=== PATIENT | male | born 1960 | race Caucasian/White ===

== ENCOUNTER 2023-05-31 08:34 | Outpatient (CLI) | payer BC, SELFPAY | END 2023-05-31 08:35 | disposition home or self-care (01) | LOC: NFLDREF 06-02 06:33 | PROVIDERS: PCP Emergency Medicine; Referring Provider Emergency Medicine; Visit Provider Emergency Medicine | DX: Z00.00 Encounter for general adult medical examination without abnormal findings (principal); Z12.5 Encounter for screening for malignant neoplasm of prostate; Z13.6 Encounter for screening for cardiovascular disorders | CPT/HCPCS: 80048; 80061; 84153 ==

== ENCOUNTER 2023-07-10 12:59 | Outpatient (CLI) | payer BC, SELFPAY | END 2023-07-10 13:00 | disposition home or self-care (01) | PROVIDERS: PCP Emergency Medicine; Visit Provider Emergency Medicine | DX: Z00.00 Encounter for general adult medical examination without abnormal findings (principal); R10.9 Unspecified abdominal pain; K59.00 Constipation, unspecified | CPT/HCPCS: 83516; 84443 ==

== ENCOUNTER 2023-09-04 10:32 | Outpatient (CLI) | payer BC, SELFPAY | END 2023-09-04 10:33 | disposition home or self-care (01) | LOC: LKVREF 10:33 | PROVIDERS: PCP Emergency Medicine; Visit Provider Emergency Medicine | DX: Z01.818 Encounter for other preprocedural examination (principal) | CPT/HCPCS: 80048 ==

== ENCOUNTER 2023-10-31 09:35 | Outpatient (CLI) | payer BC, SELFPAY | END 2023-10-31 09:36 | disposition home or self-care (01) | PROVIDERS: PCP Emergency Medicine; Visit Provider Emergency Medicine | DX: Z01.818 Encounter for other preprocedural examination (principal); D69.6 Thrombocytopenia, unspecified | CPT/HCPCS: 80048 ==

== ENCOUNTER 2024-04-01 09:46 | Outpatient (CLI) | payer BC, SELFPAY | END 2024-04-01 09:47 | disposition home or self-care (01) | LOC: LKVREF 09:48 | PROVIDERS: PCP Emergency Medicine; Visit Provider Family Medicine | DX: R10.12 Left upper quadrant pain (principal); Z13.228 Encounter for screening for other metabolic disorders | CPT/HCPCS: 80048 ==

== ENCOUNTER 2024-04-28 06:05 | Day surgery (SDC) | payer BC, SELFPAY ==
[2024-04-28] VITALS (11 sets, daily range): BP systolic 112–126; BP diastolic 64–82; PULSE 57–80; RESP 15–19; TEMP 36.3–36.6; O2SAT 94–98; BMI 27.1
--- OUTSIDE RECORDS SUMMARY | 2024-04-28 06:08 | XMS_ITS | Continuity of Care Document ---
Author Organization [facility] Address [address] [address] [place] [address] Phone Care Team Providers Care Hopper Attendant Name Role Phone No Information Unavailable Unavailable Allergies, Adverse Reactions, Alerts Substance Reaction Status Criticality No Known Allergies Active No Inform ation Medications Medication Instructions Dosage Effective Dates (start - stop) Status Comments MiralaxBisacodylMagCit Colon Prep Use as directed - Active Procedures Procedure Date Offic/outpt E&m Estab Mod-hi 2 23 Colonoscopy Flex; W/bx 1/mx Level Iv-surg Path Gross/micro 21 cancelled appt Colonoscopy Flex; W/remov Les- 15 Colonoscopy Flex; W/bx 1/mx Level Iv-surg Path Gross/micro 15 Advance Directives Directive Yes / No Effective Date File Name No Information Encounters Encounter Description Practice Location Reason(s) For Visit Diagnoses Date Provider Providers Copied on Encounter [facility] [address] [address], [place], [place], [id number], [place] tel:[phone] No Information No Information [facility], [address] [address], [place], [place], [id number], [place] tel:[phone] [facility] Irritable bowel syndrome with constipation 3 Cassy SAVAGE Jin. [address] [facility], [facility] [address], [place], [place], [id number], [place]. tel:[phone] Offic/outpt E&m Estab Mod-hi 2 [facility], [address] [address], [place], [place], [id number], [place] tel:[phone] [facility] GI Symptoms or Concerns (chief complaint) Irritable bowel syndrome with constipationRe ducible umbilical hernia Apr-0 3 Cassy Abdi. [address] [facility], [facility] [address], [place], [id number], [place]. tel:[phone] Referring Provider: Mei Santana MD, [address] [place] [address], [address]. tel:[phone] [facility], [address] [address], [place], [id number], [place] tel:[phone] [facility] No Information 3 Conrad Montes. [address] [facility], [address], [id number], [place]. tel:[phone] [facility], [address] [address], [place], [id number], [place] tel:[phone] [facility] Personal history of colonic polypsColorect al polypsEncounte r for screening for malignant neoplasm of colonBenign neoplasm of ascending colon 1 Hola Wiseman. [address] [facility], [address], [id number], [place]. tel:[phone] Referring Provider: Referral Self, USE FOR SELF REFERRALS. [facility], [address] [address], [place], [place], [address], [place] tel:[phone] [facility] No Information 0 Pranav Arora. [address] [facility], [facility] [address], [place], [id number], [place]. tel:[phone] [facility], [address] [address], [place], [address], [place] tel:[phone] [facility] No Information 8 Monty Chavarria. [address], [id number], [place]. [phone] Referring Provider: Referral Self, USE FOR SELF REFERRALS. [facility], [address] [address], [place], [id number], [place] tel:[phone] [facility] No Information 8 Link MD Mercado. [address] [place] [address], [id number], [place]. tel:[phone] [facility], [address] [address], [place], [address], [place] tel:[phone] [facility] Personal history of colonic polypsPersonal history of colonic polyps 5 Hola Wiseman. [address] [place] [address], [id number], [place]. tel:[phone] [facility], [address] [address], [facility] [place], [address], [place] tel:[phone] [facility] Colon cancer screeningColon ic polypsColon Cancer ScreeningBenig n Neoplasm Colon 5 Hola Wiseman. [address] [place] [address], [id number], [place]. tel:[phone] [facility], [address] [address], [place], [address], [place] tel:[phone] [facility] External Referral 5 No Information Family History Family Member Type Diagnosis Age At Onset Brother Problem (finding) Son Problem (finding) Alive and well Daughter Problem (finding) Alive and well Mother Problem (finding) Alive and well Father Problem (finding) Alive and well Immunizations Vaccine Date Status Comments Afluria Qd administered Note: [facility] bi-directional interface ; Source: Other Registry SARS-COV-2 (COVID-19) vaccin e, mRNA, spike protein, LNP, bivalent booster, preservative free, 30 mcg/0.3 mL dose, alissa-sucrose formulation administered Note: [facility] bi-d irectional interface ; Source: Other Registry Afluria Qd administered Note: [facility] bi-directional interface ; Source: Other Registry SARS-COV-2 (COVID-19) vaccin e, mRNA, spike protein, LNP, preservative free, 30 mcg/0.3mL dose administered Note: [facility] bi-direct ional interface ; Source: Other Registry SARS-COV-2 (COVID-19) vaccin e, mRNA, spike protein, LNP, preservative free, 100 mcg/0.5mL dose or 50 mcg/0.25mL dose administered Note: [facility] bi -directional interface ; Source: Other Registry SARS-COV-2 (COVID-19) vaccin e, mRNA, spike protein, LNP, preservative free, 100 mcg/0.5mL dose or 50 mcg/0.25mL dose administered Note: [facility] bi -directional interface ; Source: Other Registry Influenza administered Note: [facility] bi-d irectional interface ; Source: Other Registry Influenza, seasonal, injectable administe red Note: [facility] bi- directional interface ; Source: Other Registry Influenza, seasonal, injectable administe red Note: [facility] bi- directional interface ; Source: Other Registry tetanus toxoid, reduced diphtheria toxoid, and acellular pertussis vaccine, adsorbed administered Note: [facility] b i-directional interface ; Source: Other Registry Influenza, seasonal, injectable administe red Note: [facility] bi- directional interface ; Source: Other Registry Influenza, seasonal, injectable administe red Note: [facility] bi- directional interface ; Source: Other Registry tetanus and diphtheria toxoi ds, adsorbed, preservative free, for adult use (2 Lf of tetanus toxoid and 2 Lf of diphtheria toxoid) administered Note: [facility] bi-direct ional interface ; Source: Other Registry Payers Payer name Insurance type Covered green party ID Authoriza tion(s) No Information Social History Type Description Quantity Date Captured Comments Sex Male Smoking Status No Information Chief Complaint And Reason For Visit No Information Reason For Referral Reason For Referral No Information History Of Present Illness Encounter Date Complaint History Of Sherif rosas Illness GI Symptoms or Concerns Bill is a 62-year-old male patient who was referred for evaluation of abdominal discomfort. Outside records were reviewed, and noted unremarkable CBC, lipase, and LFTs. He did have abdominal CT scan on February 23, 2022, which showed an above average stool burden, otherwise completely unremarkable. Reportedly, abdominal x-ray showed large amount of stool. He did have a colonoscopy with [facility] in April 2021, that showed small polyps, otherwise normal.The patient reports that symptoms became more bothersome over the past year, including abdominal pain under the periumbilical area and just below the umbilicus along with bulge in his umbilicus. He also reports persistent left upper quadrant abdominal discomfort, that worsens with physical activity, movements sometimes, and sometimes during sexual intercourse. He reports that this can improve with stretching that area, he also reports that bowel movements helped a little bit with this discomfort. He reports that his bowel movements a Functional Status Date Functional Assessmen t No Information Medications Administered Medication Instructions Dosage Effective Dates (start - stop) Status Comments No Drug Therapy Prescribed Instructions Date Instruction Additional Infor judy 1. We suggested chec dahlia his calcium level and thyroid, however, he prefers to have this done at his PCP with the upcoming physical.2. Suggested to continue with increased water intake, 60 to 90 ounces of water a day. Add Benefiber or Citrucel fiber supplement as described below.3. May use MiraLax on a daily basis. As a next step, linaclotide might be an option given his abdominal discomfort.4. Advise PCP to refer to Surgery for treatment of umbilical hernia.5. Advised to have the surgeon review his images to see if there is any internal abnormality leading to discomfort, which I believe is less likely, and I believe that this is more related to a referred pain. I believe that physical therapy can be an option for helping his back and his abdominal discomfort, however, the patient does not believe that this is the problem. Advised to discuss with his PCP if referral to physical therapy is reasonable.6. Follow up as needed. We will refer for colonoscopy given his altered bowel habits to rule out any obstructive etiology.I spent a total of 55 minutes in reviewing outside records, [id number] clinical encounter, care coordination, and dictation. Related to Irritable bowel syndrome with constipation Colon Polyps Related to Color ectal polyps Colon Cancer Prevention Related to Colonic polyps Colon Polyps Related to Colon ic polyps Assessments Type Assessment Date No Information Patient Care Teams Name Effective Dates (start - stop) Status Members No Information
--- OUTSIDE RECORDS SUMMARY | 2024-04-28 06:08 | XMS_ITS | Clinical Summary ---
Author Organization [facility] Address [place], [place] [address] Care Team Providers Care Senior Ruby Developer Name Role Phone Pcp, No Primary Care Provider Unavailabl e Allergies No known active allergies Medications Medication Sig Dispensed Refills Start Date End Date Status multivitamin (MVI) tablet Take 1 tablet by mouth once daily. 0 05/30/2010 Active cholecalciferol (VITAMIN D-3) 2,000 unit capsule Take 1 capsule by mouth once daily. 0 08/05/2017 Active Active Problems Problem Noted Date Diagnosed Date Vitamin D deficiency 08/05/2017 Family history of cardiac arrest, younger brothe r, . 01/13/2016 Colon polyp 12/21/2015 Routine health maintenance 12/21/2015 Overview: Colonoscopy 04/08, recheck 5 yrs Screening for diabetes mellitus 09/05/2011 Overweight (BMI 25.0-29.9) 09/05/2011 Immunizations Name Administration Dates Next Due Influenza, IIV3 (Age >=3 years) 09/12/2012,10/08 Td (Age >=7 Years) 03/02/2005 Tdap 11/12/2012 Family History Medical History Relation Name Comments Heart Disease Brother bad CAD, Psychiatric illness Brother depressi on, alcohol - at 42 of overdose No Known Problems Daughter Good Health Father Cancer Maternal Grandfather Unknown source of cancer Good Health Mother Cancer Paternal Grandfather No Known Problems Son Relation Name Status Comments Brother Daughter Alive Father Alive Maternal Grandfather Cancer, possibly due to oil industry. Maternal Grandmother passed at age 100 Mother Alive Paternal Grandfather [place]. Paternal Grandmother Son Alive Social History Tobacco Use Types Packs/Day Years Used Date Smoking Tobacco: Never Smokeless Tobacco: Never Alcohol Use Standard Drinks/Week Comments Yes 1.7 (1 standard drink = 0.6 oz p ure alcohol) Sex and Gender Information Value Date Recorded Sex Assigned at Not on file Gender Identity Not on file Sexual Orientation Not on file Obstetrics History Last Filed Vital Signs Vital Sign Reading Time Taken Comments Blood Pressure 122/74 08/05/2017 8:43 AM CDT Pulse 64 08/05/2017 8:43 AM CDT Temperature 36.9 ??C (98.4 ??F) 09/26/2015 9:26 AM CS T Respiratory Rate - - Oxygen Saturation - - Inhaled Oxygen Concentration - - Weight 97.1 kg (214 lb) 08/05/2017 8:43 AM CDT Height 182.9 cm (6') 08/05/2017 8:43 AM CDT Body Mass Index 29.02 08/05/2017 8:43 AM CDT Plan of Treatment Health Maintenance Due Date Last Done Comments HIV for age 15-65 1977 Zoster (shingles) series for age 50+ (1 of 2) 2012 BMI (ht and wt on same day) for age 18+ 08/05/2018 08/05/2017, 09/19/2016, 12/22/2015 Depression screening for age 12+ 08/05/2018 08/05/2017, 12/22/2015 Lipids for age 45-75 08/05/2022 08/05/2017, 12/22/2015, 06/30/2014, Additional history exists Tetanus booster 11/12/2022 11/12/2012, 03/02/2005 COVID-19 vaccine series ( season) 2023 Influenza for age 50-64 07/26/2024 09/10/20 16 ([facility]), 09/12/2012, 10/08/2007 Colonoscopy through age 75 04/13/2025 04/13/2015 Tdap Completed 11/12/2012 Hepatitis C screening for age 18-79 Completed 06/30/2014 Pneumococcal series for age 6-64 Aged Out No longer eligible based on patient's age to complete this topic Procedures Procedure Name Priority Date/Time Associated Diagnosis Comments LIPID PANEL W REFLEX MEASURED LDL Routine 08/05/2017 9:27 AM CDT Screening for cholesterol level SCAN-COLONOSCOPY 04/13/2015 8:00 AM CDT ANTI HCV Routine 06/30/2014 9:12 AM CDT Need for hepatitis C screening test from Last 3 Months or Most Recently Relevant to Health Maintenance Results * LIPID PANEL W REFLEX MEASURED LDL (08/05/2017 9:27 AM CDT) CHOLESTEROL,TOTAL 162 100 - 199 mg/dL 08/05/2017 2:24 PM CDT [facility] TRIGLYCERIDES 77 <150 mg/dL 08/05/2017 2:24 PM CDT [facility] HDL CHOLESTEROL 47 >40 mg/dL 7 2:24 PM CDT [facility] NON-HDL CHOLESTEROL 115 <145 mg/dl 08/05/2017 2:24 PM CDT [facility] CHOL/HDL RATIO 3.45 <4.50 08/05/2017 2:24 PM CDT [facility] LDL CHOLESTEROL 100 <=130 mg/dL 08/05/2017 2:24 PM CDT [facility] PATIENT STATUS FASTING 08/05/2017 2:24 PM CDT [facility] Blood BLOOD SPECIMEN / Unknown Venipuncture / Unknown 08/05/2017 9:27 AM CDT 08/05/2017 9:27 AM CDT Paul FARIAS [facility] [address] [place] [address], * SCAN-COLONOSCOPY (04/13/2015 8:00 AM CDT) Narrative Transcriptions Bowen Simental MD - 04/13/2015 7:23 AM CDT [facility] [address] [facility], [address], [place] [address] Patient Name: Crow Damico Gender: Male Exam Date: 04/13/2015 Visit Number: [id number] Age: 54 Years Date of : 1960 Attending MD: Bowen Simental MD Medical Record#: [id number] ----- Procedure: Colonoscopy Indications: Colorectal cancer screening Referring MD: Clarence Patton MD Primary MD: Clarence Patton MD Medications: Intra Procedure Medications: Fentanyl given 0.1 mg by IV Midazolam given 2 mg by IV Complications: Procedure: An examination of the heart and lungs was performed and found to be withinacceptable limits. The patient was therefore deemed a reasonablecandidate for endoscopy and {cons_sedation: Unexpected Value} sedation. The risks and benefits of the procedure were explained to the patient.After obtaining informed consent, the patient was sedated under mydirection and I passed the scope without difficulty via the rectum to the ileum. The appendiceal orificeand ic valve were identified. The scope was retroflexed during theexamination The quality of the prep was good (Miralax/Gatorade/2 tabletsBisacodyl/Magnesium Citrate). This was a complete examination throughout the entire colon. Findings: Polyp location: ascending colon. Quantity: 1. Size: 3 mm. Polyp shape:sessile. Maneuver: polypectomy was performed with a cold biopsy forceps. Removal: complete. Retrieval: complete. Bleeding: none. Polyp location: descending colon. Quantity: 1. Size: 5 mm. Polyp shape:pedunculated. Maneuver: polypectomy was performed with a cold snare . Removal: complete. Retrieval: complete. Bleeding: none. Polyp location: sigmoid. Quantity: 1. Size: 3 mm. Polyp shape:sessile. Maneuver: polypectomy was performed with a cold biopsy forceps . Removal: complete. Retrieval: complete. Bleeding: none. Remainder of the exam is normal. Impression: Colon cancer screening Colonic polyps Pathology Results: A: COLON, ASCENDING, POLYP: 1. Tubular adenoma 2. No evidence of high grade dysplasia 3. Per the attached endoscopy report: a. Polyp size: 3mm b. Resection: Complete c. Retrieval: Complete B: COLON, DESCENDING, POLYP: 1. Tubular adenoma 2. No evidence of high grade dysplasia 3. Per the attached endoscopy report: a. Polyp size: 5mm b. Resection: Complete c. Retrieval: Complete C: COLON, SIGMOID, POLYP: Hyperplastic polyp MICROSCOPIC A: Performed B: Performed C: Performed Electronically signed by: Thor Lyons MD Final Plan: Return for a colonoscopy in 5 years. We will attempt to contact you at appropriate intervals via U.S. mail. Wemay not be able to find you or contact you at that time, therefore youshould know that the responsibility for following our recommendation restswith you. If you don't hear from us at the time your procedure is due,please contact our office to schedule an appointment. If your contactinformation should change, please contact our office so that we can updateyour record. Plan Comments: _Electronically signed by: Bowen Simental MD 04/13/2015 Bowen Simental MD OTHER * ANTI HCV [65581.2] (06/30/2014 9:12 AM CDT) HEPATITIS C ANTIBODY Non-Reacti ve Non-Reacti ve 06/30/2014 1:32 PM CDT [facility] Blood specimen (specimen) BLOOD SPECIMEN / Unknown Venipuncture / Unknown 06/30/2014 9:12 AM CDT 06/30/2014 9:12 AM CDT Narrative [facility] - 06/30/2014 1:32 PM CDT Antibodies to HCV not detected; does not exclude the possibility of exposure to HCV. Clarence Patton MD S[facility] [address] [place] [address], from Last 3 Months or Most Recently Relevant to Health Maintenance Care Teams Senior Ruby Developer Relationship Specialty Start Date End Date Pcp, No . PCP - General 11/14/15
--- OUTSIDE RECORDS SUMMARY | 2024-04-28 06:08 | XMS_ITS | Continuity of Care Document ---
Author Organization [facility] Address [address] [address] [place] [address] Care Team Providers Care Director Medical Writing Name Role Phone [place], [place] Unavailable Unav ailable Procedures Procedure Date cancelled appt Advance Directives Directive Yes / No Effective Date File Name No Information Encounters Encounter Description Practice Location Reason(s) For Visit Diagnoses Date Provider Providers Copied on Encounter [facility], [address] [address], [place], [place], [id number], [facility] No Information [facility]. [address] [address], [place], [place], [address], . tel:[phone] Referring Provider: Aura Millan MD A, [address] [place] [address], [place], [address] . tel:[phone] Family History Family Member Type Diagnosis Age At Onset No Information Payers Payer name Insurance type Covered democrat ID Authoriza tion(s) No Information Social History Type Description Quantity Date Captured Comments Sex Male Smoking Status No Information Chief Complaint And Reason For Visit No Information Reason For Referral Reason For Referral No Information History Of Present Illness Encounter Date Complaint History Of Prese nt Illness No Information Functional Status Date Functional Assessmen t No Information Instructions Date Instruction Additional Infor mation No Information Assessments Type Assessment Date No Information Patient Care Teams Name Effective Dates (start - stop) Status Members No Information
--- OUTSIDE RECORDS SUMMARY | 2024-04-28 06:09 | XMS_ITS | Continuity of Care Document ---
Author Organization [facility] Address [address] [address] [place] [address] Care Team Providers Care Cabbage Salter Name Role Phone [place], [place] Unavailable Unav ailable Procedures Procedure Date cancelled appt Advance Directives Directive Yes / No Effective Date File Name No Information Encounters Encounter Description Practice Location Reason(s) For Visit Diagnoses Date Provider Providers Copied on Encounter [facility], [address] [address], [place], [place], [id number], [facility] [place] No Information [facility]. [address] [address], [place], [place], [id number], . tel:[phone] Referring Provider: Aura Millan MD A, [address] [place] [address], [place], [address] . tel:[phone] Family History Family Member Type Diagnosis Age At Onset No Information Payers Payer name Insurance type Covered green [...]
--- OUTSIDE RECORDS SUMMARY | 2024-04-28 06:09 | XMS_ITS | Continuity of Care Document ---
Author Organization [facility] Address [address] [address] [place] [address] Phone Care Team Providers Care Shingle Inspector Name Role Phone No Information Unavailable Unavailable [...] Encounter [facility] [address] [address], [place], [place], [id number], [place] tel:[phone] No Information No Information [facility], [address] [address], [place], [place], [id number], [place] tel:[phone] [facility] Irritable bowel syndrome with constipation 3 Cassy SAVAGE Jin. [address] [facility], [facility] [address], [place], [place], [id number], [place]. tel:[phone] Offic/outpt E&m Estab Mod-hi 2 [facility], [address] [address], [place], [place], [id number], [place] tel:[phone] [facility] GI Symptoms or Concerns (chief complaint) Irritable bowel syndrome with constipationRe ducible umbilical hernia Apr-0 3 Cassy Abdi. [address] [facility], [facility] [address], [place], [id number], [place]. tel:[phone] Referring Provider: Mei Santana MD, [address] [place] [address], [address]. tel:[phone] [facility], [address] [address], [place], [id number], [place] tel:[phone] [facility] No Information 3 Conrad Montes. [address] [facility], [address], [id number], [place]. tel:[phone] [facility], [address] [address], [place], [id number], [place] tel:[phone] [facility] Personal history of colonic polypsColorect al polypsEncounte r for screening for malignant neoplasm of colonBenign neoplasm of ascending colon 1 Hola Wiseman. [address] [facility], [address], [id number], [place]. tel:[phone] Referring Provider: Referral Self, USE FOR SELF REFERRALS. [facility], [address] [address], [place], [place], [id number], [place] tel:[phone] [facility] No Information 0 Pranav Arora. [address] [facility], [facility] [address], [place], [id number], [place]. tel:[phone] [facility], [address] [address], [place], [id number], [place] tel:[phone] [facility] No Information 8 Monty Chavarria. [address], [id number], [place]. [phone] Referring Provider: Referral Self, USE FOR SELF REFERRALS. [facility], [address] [address], [place], [id number], [place] tel:[phone] [facility] No Information 8 Link MD Mercado. [address] [place] [address], [id number], [place]. tel:[phone] [facility], [address] [address], [place], [id number], [place] tel:[phone] [facility] Personal history of colonic polypsPersonal history of colonic polyps 5 Hola Wiseman. [address] [place] [address], [id number], [place]. tel:[phone] [facility], [address] [address], [facility] [place], [id number], [place] tel:[phone] [facility] Colon cancer screeningColon ic polypsColon Cancer ScreeningBenig n Neoplasm Colon 5 Hola Wiseman. [address] [place] [address], [id number], [place]. tel:[phone] [facility], [address] [address], [place], [id number], [place] tel:[phone] [facility] External Referral 5 No Information [...] Registry Payers Payer name Insurance type Covered republican ID Authoriza tion(s) No Information Social History [...] of 55 minutes in reviewing outside records, [id number] clinical encounter, care coordination, and dictation. Related to Irritable bowel syndrome with constipation Colon Polyps Related to Color ectal polyps Colon Cancer Prevention Related to Colonic polyps Colon Polyps Related to Colon ic polyps Assessments Type Assessment Date No Information Patient Care Teams Name Effective Dates (start - stop) Status Members No Information
[2024-04-28] MEDS: LACTATED RINGERS 1000 ML 1,000 ML 100 ML IV (06:50)
[2024-04-28] MEDS: SODIUM CHLORIDE 0.9 % (FLUSH) 10 ML SYRINGE IVF (06:50)
--- NOTE | 2024-04-28 07:23 | W.PM.H&PU ---
History & Physical Update History & Physical Update H&P Updates: Since our consultation patient had a hip replacement.
--- NOTE | 2024-04-28 07:25 | PM.GSPRC ---
Operative Note Date of procedure: 04/28/24 Pre-op diagnosis: 1. Symptomatic umbilical hernia. Post-op diagnosis: Same Type of Procedure: 1. Open umbilical hernia repair with mesh. Indications: 63-year-old male was seen in clinic for evaluation of abdominal pain and umbilical hernia. Patient's pain was described mostly in the left upper quadrant in one specific area. It was usually worse with strenuous activity and bending. Patient had a colonoscopy 3 years ago with polyps removed. He had a consultation with [facility], and his pain was thought to be due to constipation. Patient also noticed umbilical bulge that has been present for years. The bulge was sensitive and usually prominent. He was wondering if his umbilical hernia needed to be repaired. On clinical exam patient had reducible umbilical hernia with a fascial defect of approximately 1.5 cm. This was sensitive to palpation and reduction. On his abdominal exam there was no evidence of left upper quadrant hernias. Given patient's clinical history and his clinical exam, discussion was held that his focal localized left upper quadrant pain may not be related to his umbilical hernia. Patient did have tender umbilical bulge. We discussed conservative management versus surgical repair, and patient desired to proceed with umbilical hernia repair. The procedure was discussed in detail. The risks associated procedure including infection, bleeding, injury to intra-abdominal organs, and hernia recurrence were all discussed with the patient, he agreed to proceed. Procedure Description: After discussing the risks and benefits of the procedure, the patient signed informed consent.? The operative site was marked and the patient was brought to the operating room and placed on the operating table in supine position.? Care was taken to pad the patient's pressure points.?? The patient was then intubated by anesthesia.?? The operative site was then prepped and draped in the usual sterile fashion.? A time-out was then performed. Local anesthetic was injected at the surgical site. A curvilinear skin incision was made with a scalpel just below umbilicus. Subcutaneous tissue was dissected with electrocautery down to the hernia sac and anterior fascia. The hernia sac was dissected off of the anterior fascia and subcutaneous fat around the fascial defect was dissected away from the fascial defect with cautery. I then developed preperitoneal space for mesh insertion. Peritoneum was entered during this dissection and peritoneal opening was oversewn with 3-0 Vicryl suture. The fascial defect was approximately 1.5 cm. A medium-sized Ventralex ST mesh patch was then inserted into preperitoneal space and secured to the fascia using 0-0 Neurolon interrupted stitches. I examined my closure and no defects were identified between the fascia and the mesh. Fascia was re-approximated over the mesh with a running 2-0 Vicryl stitch. Additional local anesthetic was injected into subcutaneous tissues. An umbilicus was tacked down with interrupted 3-0 Vicryl stitches. Subdermal layer was closed with interrupted sutures using 3-0 Vicryl. Skin was closed with 4-0 Monocryl using subcuticular stitch. Steri strips were applied over the incision. I then placed a folded sterile 2 x 2 and 4x4 gauze over the incision and covered it with tape. All counts were correct at the end of the case. Patient tolerated the procedure well and was transferred to PACU without any complications. Implants: Ventralex ST mesh Anesthesia: GETA Surgeon: Kita Lovell MD Estimated blood loss (mL): 5 Condition: stable Disposition: PACU
[2024-04-28] MEDS: CEFAZOLIN 2 GM INJ IVP (07:35)
[2024-04-28] MEDS: BUPIVACAINE 0.25% 30 ML INJECTION (07:44)
--- NOTE | 2024-04-28 08:08 | W.ANESCHARGE ---
Anesthesia Charges Start Date/Time Anesthesia Start Date: 04/28/24 Anesthesia Start Time: 07:26 Stop Date/Time Anesthesia Stop Date: 04/28/24 Anesthesia Stop Time: 08:52
--- NOTE | 2024-04-28 08:09 | W.ANESCHARGE ---
Anesthesia Charges Start Date/Time Anesthesia Start Date: 04/28/24 Anesthesia Start Time: 07:26 Stop Date/Time Anesthesia Stop Date: 04/28/24 Anesthesia Stop Time: 08:52
== END 2024-04-28 10:01 | disposition home or self-care (01) ==
PROVIDERS: PCP Emergency Medicine; Visit Provider Surgery
PROC: (CPT 49591; principal; 2024-04-28 07:30)
DX: K42.9 Umbilical hernia without obstruction or gangrene (principal)
CPT/HCPCS: 49591; 00830; C1781; J0330; J0665; J0690; J1100; J2250; J2405; J2704; J3010; J3490; J7120

== ENCOUNTER 2025-04-12 09:00 | Outpatient (CLI) | payer BC, SELFPAY | END 2025-04-12 09:01 | disposition home or self-care (01) | PROVIDERS: PCP Emergency Medicine; Visit Provider Family Medicine | DX: Z13.228 Encounter for screening for other metabolic disorders (principal); Z12.5 Encounter for screening for malignant neoplasm of prostate | CPT/HCPCS: 80048; G0103 ==